=== PATIENT | male | born 1970 | race Caucasian/White ===

== ENCOUNTER 2018-09-19 17:13 | Emergency (ER) | payer OTHER ==
[~2018-09-19] VITALS: Ht 180.3 cm; Wt 72.1 kg
[2018-09-19 17:25] VITALS: Ht 180.3 cm; Wt 72.1 kg
[2018-09-19 22:05] VITALS: BP 124/77
== END 2018-09-19 22:05 | disposition home or self-care (01) ==
LOC: ED 17:13
DX: M54.5 Low back pain (principal); F17.210 Nicotine dependence, cigarettes, uncomplicated; F15.10 Other stimulant abuse, uncomplicated; Z88.5 Allergy status to narcotic agent
CPT/HCPCS: J1885

== ENCOUNTER 2019-10-28 20:03 | Emergency (ER) | payer OTHER | END 2019-10-28 21:16 | disposition left against medical advice (07) | LOC: ED 20:03 | DX: Z53.21 Procedure and treatment not carried out due to patient leaving prior to being seen by health care provider (principal) ==

== ENCOUNTER 2019-10-29 17:23 | Emergency (ER) | payer OTHER ==
[~2019-10-29] VITALS: Ht 177.8 cm; Wt 59.0 kg
[2019-10-29 17:40] VITALS: Ht 177.8 cm; Wt 59.0 kg
[2019-10-29 19:15] VITALS: BP 130/85
== END 2019-10-29 19:12 | disposition home or self-care (01) ==
LOC: ED 17:23
DX: H57.89 Other specified disorders of eye and adnexa (principal); Z88.5 Allergy status to narcotic agent